=== PATIENT | female | born 1955 | race Caucasian/White ===

== ENCOUNTER → 2016-09-13 | Day surgery (SDC) | payer OTHER ==
[~2016-09-13] MED LIST: AMIT10TA6 PO; BACL10TA PO; BENZ100 PO; BUPIVACAINE HCL PF 0.25% 30 ML VIAL ONE; BUPR100T4 PO; CYCL1TAB29 PO; ESCI20TA PO; FLUT50SP EACH NARE; GABA300C5 PO; HYDR-3583 PO; LACTATED RINGER'S 1000 ML INJ 1,000 ML ONE; LEVO50TA4 PO; MIDAZOLAM HCL 2 MG/2 ML VIAL ONE; ONDANSETRON HCL 4 MG/2 ML VIAL IV PUSH ONE; PROPOFOL 200 MG/20 ML AMP IV ONE; TOPA50TA7 PO; TRAZ50TA12 PO; ZANT150T2 PO; ceFAZolin 2 GM PREMIX 50 ML ONE
--- NOTE | 2016-09-13 23:38 | MP ---
cc: BELLO MCKINNEY DP DATE OF SURGERY: 09/13/2016 PREOPERATIVE DIAGNOSIS: Painful right fifth metatarsal exostosis bunionette deformity. POSTOPERATIVE DIAGNOSIS Painful right fifth metatarsal exostosis bunionette deformity. PROCEDURES PERFORMED Right fifth metatarsal exostectomy SPECIMEN None. ESTIMATED BLOOD LOSS: Less than 10 mL COMPLICATIONS: None. ANESTHESIA: General, with approximately 12 cc of 0.25% Marcaine plain. TOURNIQUET TIME 21 minutes at a setting of 215 mmHg. PLAN OF ACTIVITY: PACU and then DC home once stable per Same-Day Surgery criteria. JUSTIFICATION FOR PROCEDURE: The patient is a pleasant 61 year-old female with painful callus and bony prominence of the plantar aspect of the right fifth metatarsal. It was evident on x-ray there was a sagittal plane deformity. We devised a plan to move forward with possible sagittal plane osteotomy verses exostectomy. No guarantees given or implied regarding the outcome. PROCEDURE IN DETAIL Under mild sedation the patient is brought to the operating room, placed on the operating room table in supine position. Following the induction of general anesthesia, local anesthesia was obtained about the patient's hindfoot utilizing standard block fashion. The patient's right foot was then scrubbed, prepped and draped in the usual aseptic fashion. The foot was elevated, exsanguinated and the previously placed mid calf tourniquet was inflated to 215 mmHg. An incision was made over the distal lateral aspect of the fifth metatarsal. Sharp and blunt dissection was carried down to scar tissue, linear incision made. Subperiosteal there is noted to be a plantar prominence of the level of the fifth metatarsal head which was then transected to a smooth contour. This was flushed with copious amounts of normal saline. This was acceptable and appeared to be parallel now to the fourth metatarsal head weightbearing surface with no longer a bony prominence at the level of the fifth metatarsal. The wound was flushed with copious amounts of normal saline. Periosteum and capsule was closed utilizing Vicryl. The skin was closed utilizing nylon. Upon relieving the tourniquet, there was a prompt hyperemic response to all digits without any delayed capillary fill time. The patient is transferred from the OR to PACU with all vital signs stable. The patient is heel weight bear to tolerance. She will follow up within 3-5 days. IBETH John /1:51 PM /11:33 PM
== END | disposition home or self-care (01) ==
LOC: ESDC 11:31
PROVIDERS: ATTEND Podiatrist Foot & Ankle Surgery
DX: M21.621 Bunionette of right foot (principal)
CPT/HCPCS: 01480; 28110; J0690; J2250; J2405; J3010; J7120

== ENCOUNTER → 2016-10-06 | Outpatient (CLI) | payer OTHER ==
[~2016-10-06] MED LIST changes: -BUPIVACAINE HCL PF 0.25% 30 ML VIAL ONE; -LACTATED RINGER'S 1000 ML INJ 1,000 ML ONE; -MIDAZOLAM HCL 2 MG/2 ML VIAL ONE; -ONDANSETRON HCL 4 MG/2 ML VIAL IV PUSH ONE; -PROPOFOL 200 MG/20 ML AMP IV ONE; -ceFAZolin 2 GM PREMIX 50 ML ONE
== END ==
LOC: CPRE 11:34
PROVIDERS: ATTEND Neurological Surgery
DX: Z01.812 Encounter for preprocedural laboratory examination (principal); M50.10 Cervical disc disorder with radiculopathy, unspecified cervical region

== ENCOUNTER 2016-10-11 05:57 | Observation (INO) | payer OTHER ==
[~2016-10-11] VITALS: Ht 165.1 cm; Wt 60.6 kg
[~2016-10-11 05:57] MED LIST changes: -BACL10TA PO; -CYCL1TAB29 PO; -GABA300C5 PO; -HYDR-3583 PO
[2016-10-11] MEDS ORDERED: METOPROLOL TARTRATE 25 MG TAB PO PRN (06:30)
[2016-10-11] MEDS ORDERED: POVIDONE IODINE 5% (ANTISEPSIS KIT) 4 APPLICATIONS EACH NARE PRN (06:30)
[2016-10-11] MEDS ORDERED: CHLORHEXIDINE GLUCONATE 2 % 1 PACK (2 CLOTHS) TOPICAL PRN (06:30)
[2016-10-11] MEDS ORDERED: INSULIN HUMAN REGULAR 1,000 UNITS/10 ML VIAL SQ PRN (06:30)
[2016-10-11] MEDS ORDERED: LACTATED RINGER'S 1000 ML IV PRN (06:30)
[2016-10-11] MEDS ORDERED: SODIUM CHLORID 0.9% 500 ML IV PRN (06:30)
[2016-10-11] MEDS ORDERED: VANCOMYCIN HCL 1000 MG ON-CALL/NS 250 ML IV SCH ×2 (06:45)
[2016-10-11] MEDS ORDERED: SODIUM CHLOR 0.9% 1000 ML INJ 1,000 ML IV SCH (06:45)
[2016-10-11 06:48] VITALS: BP 118/75; PULSE 73; RESP 16; TEMP 98.1; O2SAT 99
[2016-10-11] MEDS ORDERED: VANCOMYCIN HCL 1000 MG VIAL ONE ×2 (06:53→09:10)
[2016-10-11] MEDS ORDERED: THROMBIN (TOPICAL) 5,000 UNIT VIAL ONE ×3 (06:53→11:20)
[2016-10-11] MEDS ORDERED: GELFOAM SIZE 100 ONE ×2 (06:54→09:10)
[2016-10-11] MEDS ORDERED: MIDAZOLAM HCL 2 MG/2 ML VIAL ONE (07:43)
[2016-10-11] MEDS ORDERED: KETAMINE HCL 500 MG/5 ML VIAL ONE (07:43)
[2016-10-11] MEDS ORDERED: fentaNYL CITRATE 250 MCG/5 ML AMP ONE ×2 (07:43→12:45)
[2016-10-11] MEDS ORDERED: ACETAMINOPHEN 1000 MG/100 ML VIAL IV ONE (07:43)
[2016-10-11] MEDS ORDERED: HYDROmorphone HCL PF 2 MG/ML VIAL ONE (07:43)
[2016-10-11] MEDS ORDERED: BUPIVACAINE/EPINEPHRINE 0.5% PF 10 ML VIAL INFIL ONE (09:53)
[2016-10-11] MEDS ORDERED: NORMOSOL R INJ 1,000 ML IV ONE (12:00)
[2016-10-11] MEDS ORDERED: ONDANSETRON HCL 4 MG/2 ML VIAL IV PUSH ONE (12:00)
[2016-10-11] MEDS ORDERED: PROPOFOL 200 MG/20 ML AMP IV ONE (12:00)
[2016-10-11] MEDS: NS + KCL 20 MEQ INJ 1,000 ML IV SCH ×2 (12:36→14:53)
[2016-10-11] MEDS ORDERED: CYCLOBENZAPRINE HCL 10 MG TAB PO PRN (12:45)
[2016-10-11] MEDS ORDERED: SODIUM CHLORIDE 0.9% FLUSH 10 ML FLUSH IV FLUSH PRN (12:45)
[2016-10-11] MEDS ORDERED: cloNIDine HCL 0.1 MG TAB PO PRN (12:45)
[2016-10-11] MEDS ORDERED: ACETAMINOPHEN/HYDROcodone 325 MG/10 MG TAB PO PRN (12:45)
[2016-10-11] MEDS ORDERED: ALUMINUM/MAGNESIUM/SIMETH 30 ML CUP PO PRN (12:45)
[2016-10-11] MEDS ORDERED: MAGNESIUM HYDROXIDE SUSP 30 ML CUP PO PRN (12:45)
[2016-10-11] MEDS ORDERED: DEXAMETHASONE SOD PHOS 4 MG/ML VIAL IV SCH (12:45)
[2016-10-11] MEDS ORDERED: MENTHOL LOZENGE BUCCAL PRN (12:45)
[2016-10-11] MEDS ORDERED: METOCLOPRAMIDE HCL 10 MG/2 ML VIAL IV PUSH PRN (12:45)
[2016-10-11] MEDS ORDERED: ACETAMINOPHEN 325 MG TAB PO PRN (12:45)
[2016-10-11] MEDS ORDERED: MORPHINE SULFATE 4 MG/ML INJ IV PRN (12:45)
[2016-10-11] MEDS ORDERED: BENZONATATE 100 MG CAP PO PRN (12:45)
[2016-10-11] MEDS ORDERED: ZOLPIDEM TARTRATE 5 MG TAB PO PRN (12:45)
[2016-10-11] MEDS ORDERED: ONDANSETRON HCL 4 MG/2 ML VIAL IV PRN (12:45)
[2016-10-11] MEDS ORDERED: RESP: ALBUTEROL 2.5 MG/3 ML NEB (PRN) NEB (12:45)
--- NOTE | 2016-10-11 12:55 | RADRPT ---
EXAM DATE/TIME: 10/11/2016 08:31 [facility] COMPARISON: SPINE CERVICAL LATERAL ONLY, October 11, 2016, 8:31. INDICATIONS : Post-op C5-C6-C7 anterior cervical fusion. MEDICAL HISTORY : None. SURGICAL HISTORY : None. ENCOUNTER: Initial ACUITY: 1 day PAIN SCORE: Non-responsive. LOCATION: neck FINDINGS: Frontal and crosstable lateral spot intraoperative fluoroscopic views of the cervical spine demonstra te anterior cervical discectomy and intervertebral fusion hardware at C5-C7. Endotracheal tube and te mperature probe identified. Good alignment of the cervical spine. CONCLUSION: Postoperative changes. Fam Beckham MD on October 11, 2016 at 12:52 Board Certified Radiologist. This report was verified electronically.
--- NOTE | 2016-10-11 12:56 | RADRPT ---
EXAM DATE/TIME: 10/11/2016 08:31 [facility] COMPARISON: SPINE CERVICAL LTD (AP&LAT), October 11, 2016, 8:31. INDICATIONS : C5-C6-C7 anterior cervical fusion. Level localization. MEDICAL HISTORY : None. SURGICAL HISTORY : None. ENCOUNTER: Initial ACUITY: 1 day PAIN SCORE: Non-responsive. LOCATION: neck FINDINGS: Single crosstable lateral view the cervical spine obtained intraoperatively demonstrates a localizati on needle projecting at the anterior margin of the C5-6 intervertebral disc space. Degenerative disc disease is noted at C4-5 through C6-7. CONCLUSION: Localization as above. Fam Beckham MD on October 11, 2016 at 12:53 Board Certified Radiologist. This report was verified electronically.
--- NOTE | 2016-10-11 14:07 | PD.OP ---
MD Valentín Ventura MD Operative Report Date of Surgery: Oct 11, 2016 Preoperative Diagnosis: Intractable neck pain with polyradiculopathy; C5-6 and C6-7 disc osteophyte complex with associated degenerative disc disease and spinal/foraminal stenosis Postoperative Diagnosis: Same Procedure: Anterior cervical C5-6 and C6-7 microdiscectomy with interbody fusion; anterior C5-7 cervical plate placement; C5-6 and C6-7 interbody cage placement; microsurgical technique Anesthesia: Gen. endotracheal by Lorenzo Delarosa Surgeon: Wolf Merchant M.D. Software Product Manager(s): Beatriz Guerrero Operation and Findings: Following administration of general endotracheal anesthesia, the patient received a gram of vancomycin and Decadron 10 mg intravenously. Sequential compression devices were placed in supine position on a Ezekiel table and all pressure points adequately padded. The head secured in a donut and anterior cervical region then shaved and prepped with Chloraprep and sterilely draped with Ioban along with the usual sterile draping. A transverse skin incision on the left side of the neck was then made after infiltrating the skin with 0.5% Marcaine with epinephrine solution extending down through the platysma. At the anterior border of the sternocleidomastoid further dissection was undertaken developing a plane between the carotid sheath laterally and the trachea esophagus medially. The prevertebral fascia was exposed and dissected out. The medial attachments of the longus colli muscles were detached and a self- retaining retractor used for exposure. The C5-6 disc space was localized with a marking the disc space and using lateral fluoroscopy. Biscoe distraction screws 14 mm length were placed one in the C5 and one in the C7 body interbody distraction and exposure. There was significant disc degeneration with disc height collapse and anterior osteophytes noted at the C5-6 and C6-7 levels and the osteophytes were resected with a Leksell and annulus incised with a 15 blade and further dissection undertaken using microtechnique with microscope magnification. Diskectomy was undertaken with pituitaries and the endplates were also decorticated with curettes and drill bit. And more posteriorly there was disk osteophyte complex compressing the thecal sac along with a significant uncovertebral joint hypertrophy with foraminal stenosis which was decompressed along with removal of the posterior longitudinal ligaments at both levels. The foramen was decompressed bilaterally using a Kerrison's and palpation with a nerve hook, the exiting nerve roots were felt to be free. The area was then copiously irrigated. I then placed a Peek cage packed with local autograft bone at the C5-6 interspace under fluoroscopy guidance. Biscoe distraction pins were removed and the holes plugged with Gelfoam for hemostasis. In order to facilitate the fusion and provide stabilization, a Precision spine cervical plate was then placed with two 14 mm variable angle screws in the C5 body, one in the C6 body, and two 14 mm fixed angle screws in the C7 body. The plate screw locking mechanism was then engaged. AP and lateral fluoroscopy confirmed good placement of the construct and the retractor was then removed. Muscular bleeding points were cauterized with bipolar cautery and Gelfoam was then also used for hemostasis which was removed. The platysma was then approximated using 3-0 Vicryl interrupted stitches and 3-0 Vicryl subcuticular stitch also placed in an interrupted fashion, and final skin closure was with Mastisol and Steri- Strips. Sterile dressing was then applied. The neck immobilized in a [place] collar. The patient was then extubated and taken to the recovery room. There are no intraoperative complications and all sponge and needle counts were correct at the end of procedure. Estimated blood loss was about 50 cc. The patient did undergo intraoperative neurologic monitoring which remained stable throughout the surgery. Wolf Merchant MD Oct 11, 2016 14:07
[2016-10-11] MEDS: DEXAMETHASONE SOD PHOS 4 MG/ML VIAL IV SCH ×2 (14:34→22:09)
[2016-10-11 16:00] VITALS: BP 120/74; PULSE 72; RESP 18; TEMP 96.8; O2SAT 94
[2016-10-11 18:52] VITALS: O2SAT 96
[2016-10-11] MEDS: FAMOTIDINE 20 MG TAB PO SCH (20:00)
[2016-10-11] MEDS: DOCUSATE SODIUM 100 MG CAP PO SCH (20:00)
[2016-10-11] MEDS: FLUTICASONE PROPIONATE 50 MCG/ACT 16 GM NASAL SPRAY EACH NARE SCH (20:01)
[2016-10-11] MEDS: SODIUM CHLORIDE 0.9% FLUSH 10 ML FLUSH IV FLUSH SCH (20:06)
[2016-10-11] MEDS ORDERED: ESCITALOPRAM OXALATE 20 MG TAB PO SCH (21:00)
[2016-10-11] MEDS ORDERED: TOPIRAMATE 100 MG TAB PO SCH (21:00)
[2016-10-11] MEDS ORDERED: AMITRIPTYLINE HCL 10 MG TAB PO SCH (21:00)
[2016-10-11] MEDS ORDERED: traZODone HCL 100 MG TAB PO SCH (21:00)
[2016-10-11 21:15] VITALS: BP 102/69; PULSE 80; RESP 17; TEMP 98; O2SAT 95
[2016-10-11] MEDS: ACETAMINOPHEN/HYDROcodone 325 MG/10 MG TAB PO PRN (21:56)
[2016-10-12 00:45] VITALS: BP 100/67; PULSE 76; RESP 16; TEMP 98; O2SAT 95
[2016-10-12] MEDS: ACETAMINOPHEN/HYDROcodone 325 MG/10 MG TAB PO PRN ×3 (02:51→11:42)
[2016-10-12] MEDS: DEXAMETHASONE SOD PHOS 4 MG/ML VIAL IV SCH (02:51)
[2016-10-12 03:45] VITALS: BP 101/68; PULSE 80; RESP 16; TEMP 97.8; O2SAT 95
[2016-10-12] MEDS ORDERED: LEVOTHYROXINE SODIUM 50 MCG TAB PO SCH (06:00)
[2016-10-12 07:40] VITALS: O2SAT 98
[2016-10-12 08:00] VITALS: BP 117/76; PULSE 77; RESP 16; TEMP 96.1; O2SAT 96
[2016-10-12] MEDS: FLUTICASONE PROPIONATE 50 MCG/ACT 16 GM NASAL SPRAY EACH NARE SCH (08:06)
[2016-10-12] MEDS: DOCUSATE SODIUM 100 MG CAP PO SCH (08:06)
[2016-10-12] MEDS: SODIUM CHLORIDE 0.9% FLUSH 10 ML FLUSH IV FLUSH SCH (08:06)
[2016-10-12] MEDS: FAMOTIDINE 20 MG TAB PO SCH (08:06)
[2016-10-12] MEDS ORDERED: WELLBUTRIN PO SCH (09:00)
--- NOTE | 2016-10-12 09:35 | HHI.NSPN ---
(Jerome Stockton) History Chief Complaint: Incisional discomfort (Jerome Stockton) Interval History 10/12/16: S/p C5/C6 and C6/C7 anterior cervical fusion with cervical plate placement. Pt awake and alert. Complains of tracheal irritation. Was able to tolerate diet this morning. She states Shane was removed recently has not urinated yet. She complains of pain radiating into the LUE in the lateral aspect into the 1-3rd fingers. Numbness and paresthesias in fingers. (Jerome Stockton) Review of Systems General: Negative for: fever, chills, insomnia Respiratory: Negative for: shortness of breath, cough, sputum Cardiovascular: Negative for: chest pain Gastrointestinal: Negative for: nausea, vomitting, diarrhea, constipation ( Jerome Stockton) Exam Results Vital Signs Date Time Temp Pulse Resp B/P Pulse Ox O2 Delivery O2 Flow Rate FiO2 10/12/16 08:00 96.1 77 16 117/76 96 10/12/16 07:40 21 10/12/16 06:58 Room Air 10/11/16 13:30 2 Intake and Output 10/11/16 10/11/16 10/12/16 08:00 16:00 00:00 Intake Total 2200 ml 480 ml Output Total 800 ml 1050 ml Balance 1400 ml -570 ml (Jerome Stockton) Physical Examination Resp: CTA bilaterally Heart: NSR no murmurs Abd: Soft positive bs Skin: No cyanosis or erythema. Incision clean and dry. New bandage placed by RN. Muscle: Moves UEs with good strength. Cervical collar in place. Neuro: Pt awake and alert. Follows commands well. Speech clear and appropriate. (Jerome Stockton) Lab, Micro, Other Results 10/11/16 10/11/16 10/12/16 15:00 23:00 07:00 Intake Total 2200 ml 480 ml 480 ml Output Total 800 ml 1050 ml 1100 ml Balance 1400 ml -570 ml -620 ml Intake Oral 480 ml 480 ml Other 2200 ml Output Urine Total 700 ml 1050 ml 1100 ml Estimated Blood Loss 100 ml # Bowel Movements 0 0 (Jerome Stockton) Medical Decision Making Impression and Plan A: 61 y/o FM s/p C5/C6 and C6/C7 ACF with interbody cage and plate placement. P: Will get pt up and ambulate this morning. If doing well will discharge pt home. (Jerome Stockton) Attending Statement The exam, history, and the medical decision-making described in the above note were completed with the assistance of the mid-level provider. I reviewed and agree with the findings presented. I attest that I had a [id number] encounter with the patient on the same day, and personally performed and documented my assessment and findings in the medical record. (Wolf Merchant MD) Jerome Stockton Oct 12, 2016 09:35 Wolf Merchant MD Oct 12, 2016 12:38
[2016-10-12] MEDS ORDERED: HYDR-3583 PO (12:19)
[2016-10-12 12:33] VITALS: BP 98/64; PULSE 85; RESP 16; TEMP 97.8; O2SAT 95
[2016-10-14] MEDS ORDERED: CYCL1TAB29 PO (14:56)
== END 2016-10-12 16:41 | disposition home or self-care (01) ==
LOC: HSDC 05:57 → HSDI 12:40 → N06A 13:51
PROVIDERS: ADMIT Neurological Surgery; ATTEND Neurological Surgery
DX: M54.2 Cervicalgia (principal); M48.02 Spinal stenosis, cervical region; M50.322 Other cervical disc degeneration at C5-C6 level; M50.323 Other cervical disc degeneration at C6-C7 level; M25.78 Osteophyte, vertebrae
CPT/HCPCS: 00600; 00670; 20936; 22551; 22552; 22853; 72020; 72040; 76000; 94150; C1713; G0378; J0131; J0690; J1100; J1170; J2250; J2270; J2405; J3010; J3370; J3480; J7050; J7120; L0150; L0172